=== PATIENT | female | born 1980 | race Two or more races ===

== ENCOUNTER 2017-05-15 19:43 | Emergency (ER) | payer OTHER ==
[~2017-05-15] VITALS: Ht 149.9 cm; Wt 79.2 kg
[2017-05-15 19:49] VITALS: Ht 149.9 cm; Wt 79.2 kg
--- NOTE | 2017-05-15 20:32 | ERD ---
ER Documentation Chief Complaint Chief Complaint 15 weeks , pelvic/belly pains now, hx fibroids HPI 15 wk female with a large fibroid . pt reports that she is having pain and difficulty walking . pt denies vaginal bleeding .pt reports that she was not having pain and now she is having pain and feet swelling , Next [facility] appointment 05/24/17 ROS All systems reviewed and are negative except as per history of present illness. Allergies Allergies: Coded Allergies: No Known Allergy (Unverified , 05/15/17) PMhx/Soc History of Surgery: No Anesthesia Reaction: No Hx Neurological Disorder: No Hx Respiratory Disorders: No Hx Cardiac Disorders: No Hx Psychiatric Problems: No Hx Miscellaneous Medical Probl: Yes (Fibroids) Hx Alcohol Use: No Hx Substance Use: No Hx Tobacco Use: No Smoking Status: Never smoker Physical Exam Vitals Vital Signs Date Time Temp Pulse Resp B/P Pulse Ox O2 Delivery O2 Flow Rate FiO2 05/15/17 19:49 97.1 94 18 103/66 98 Physical Exam Const: Nourished well-appearing well-hydrated 37-year-old female in no acute distress Head: Eyes: ENT: NormaLl External Ears, Nose and Mouth. Neck: Resp: Cardio: Abd: 's abdomen tenderness Skin: Back: flank tenderness Ext: No cyanosis, trace nonpitting edema bilateral ankles Neur: Awake and alert Psych: Normal Mood and Affect Result Diagram: 05/15/172042 Results 24 hrs Laboratory Tests Test 05/15/17 20:43 05/15/17 20:50 White Blood Count 12.710^3/ul Red Blood Count 3.7010^6/ul Hemoglobin 11.0g/dl Hematocrit 32.3% Mean Corpuscular Volume 87.3fl Mean Corpuscular Hemoglobin 29.7pg Mean Corpuscular Hemoglobin Concent 34.1g/dl Red Cell Distribution Width 12.2% Platelet Count 48385^3/UL Mean Platelet Volume 10.1fl Neutrophils % 68.9% Lymphocytes % 18.9% Monocytes % 10.8% Eosinophils % 0.7% Basophils % 0.3% Nucleated Red Blood Cells % 0.0/100WBC Neutrophils # 8.810^3/ul Lymphocytes # 2.410^3/ul Monocytes # 1.410^3/ul Eosinophils # 0.110^3/ul Basophils # 0.010^3/ul Nucleated Red Blood Cells # 0.010^3/ul Beta HCG, Quantitative 61653.0mIU/ml Urine Color YELLOW Urine Clarity SLIGHTLY CLOUDY Urine pH 6.0 Urine Specific [place] 1.018 Urine Ketones NEGATIVEmg/dL Urine Nitrite NEGATIVEmg/dL Urine Bilirubin NEGATIVEmg/dL Urine Urobilinogen NEGATIVEmg/dL Urine Leukocyte Esterase NEGATIVELeu/ul Urine Microscopic RBC 1/HPF Urine Microscopic WBC 2/HPF Urine Squamous Epithelial Cells FEW/HPF Urine Bacteria FEW/HPF Urine Mucus FEW/HPF Urine Hemoglobin NEGATIVEmg/dL Urine Glucose NEGATIVEmg/dL Urine Total Protein NEGATIVEmg/dl Current Medications Medications (Trade) Dose Ordered Sig/Enmanuel Route PRN Reason Start Time Stop Time Status Last Admin Dose Admin Acetaminophen (Tylenol Tab) 650 mg ONCE ONCE PO 05/15/17 21:00 05/15/17 21:01 DC 05/15/17 20:52 Interpretation text CBC shows evidence of infection or hemorrhage, WBCs elevated this is not abnormal during , Serum beta quant 09609.0mIU/ml normal for 16 weeks of . Urinalysis negative for evidence of leukocytosis or nitrates, no evidence of infection. Procedures/MDM PROCEDURE: Obstetrical ultrasound greater than 14 weeks CLINICAL INDICATION: Pelvic pain. Fibroid TECHNIQUE: Real time sonographic imaging of the gravid uterus is performed transabdominally and multiple static black scale and Doppler images are submitted for review as are measurements. The images are reviewed on the PACS. COMPARISON: No relevant exams are available FINDINGS: An ovoid hypoechoic subserosal fundal leiomyoma is suspected estimated at 9.3 x 7.8 x 6.1 cm. There is a single living intrauterine gestation in breech to variable presentation. The heart beat is estimated at 129 bpm. The measurements are as follows: BPD: 3.25 cm HC: 11.17 cm AC: 10.02 cm FL: 2.04 cm Estimated gestational age is 16 weeks. The estimated date of delivery is 2017. The estimated weight is 142 grams. Placenta is posterior and grade 0. There is no evidence of placenta previa or abruption. The amniotic fluid is qualitatively normal RPTAT:VLADIMIR IMPRESSION: 1. Single viable intrauterine gestation estimated at 16 weeks with the estimated date of delivery 10/30/2017. 2. Large subserosal leiomyoma estimated at 9.3 cm she leiomyoma estimated at 9.3 cm. 3. Posterior grade 0 placenta without evidence of abruption. Physician Howard Date Time Electronically viewed and signed by Physician Howard on 05/15/2017 21:24 This , 37-year-old female presents to emergency department with pelvic pain worsening over the last 2 days. Patient reports that she is 15 weeks has a large uterine fibroid being followed by care companion, patient is seen monthly next visit in May. Patient reports pain has increased over the last 2 days patient is concerned that something is wrong with the . She denies any vaginal bleeding, or discharge, she denies dysuria, or hematuria. Emergency room course includes single viable intrauterine gestation as estimated at 16 weeks with estimated date of delivery October 30, 2017. Large subserosal fundal leiomyoma estimated at 9.3 cm. Posterior grade 0 placenta without evidence of abruption plan to discharge patient home with copy of ultrasound report instructed to follow-up with primary care physician, return to emergency department for any vaginal bleeding, pelvic pain. Patient is stable with no new complaints during ER course, clinically there is no current evidence to suggest meningitis, sepsis, acute abdomen, acute coronary syndromes , pulmonary embolism or any other emergent condition appearing to require further evaluation or hospitalization. I feel the patient is stable for discharge at this time. I have discussed results, examination findings, the treatment plan with the patient and family present prior to discharge. Indications for emergent reevaluation, side effects of medication were also discussed. All questions were answered. Patient verbalizes understanding and agrees with plan of care. Departure Diagnosis: Primary Impression: Pelvic pain complicating Trimester: first trimester Qualified Code: O26.891 - Pelvic pain affecting in first trimester, antepartum Additional Impression: Leiomyoma Condition: Good Patient Instructions: Uterine Fibroids, What Are Fibroids? Additional Instructions: Thank you for for coming to [facility] for your care today. Please ask your nurse or provider if you have questions about your care today and do not leave until all your questions have been answered. Please use any medications given as directed and follow-up with your doctor (or the doctor you were referred to) in the next 2-3 days. If you do not have a primary care doctor you may follow up at the [facility] (listed below). You may also use motrin and tylenol as needed for fever and/or pain unless instructed otherwise by your provider or nurse. Indications for more urgent follow-up have been discussed, but you may return to the Emergency Department at ANY time for any worrisome or worsening symptoms. If you have abdominal pain, please know that no test or exam you received is perfect and you should follow up within 8 hours for continued pain. If you had any imaging studies today, such as an X-Ray or CT Scan, these studies will be reviewed later by a radiologist. You will be called if there are important findings that were not identified today, so make sure the contact information you provided at registration is correct. If you received any narcotic pain control medicine today, such as Vicodin, Morphine or Dilaudid, your coordination and judgment may be affected for a number of hours. Please do not drive or operate heavy machinery, and you may want someone to assist you at home. If you were given a prescription for narcotic medication, be aware that it is very addictive- use sparingly and only if necessary. TESS GUERRERO May 15, 2017 20:32
[2017-05-15] MEDS ORDERED: ACETAMINOPHEN 325 MG TAB PO ONE (21:00)
[2017-05-15 21:21] LABS: BASOPHILS % 0.3 % (0.0-2.0); EOSINOPHILS # 0.1 10^3/ul (0.0-0.5); EOSINOPHILS % 0.7 % (0.0-7.0); HEMATOCRIT 32.3 % (37.0-47.0); LYMPHOCYTES # 2.4 10^3/ul (0.8-2.9); LYMPHOCYTES % 18.9 % (15.0-51.0); MEAN CORPUSCULAR HEMOGLOBIN 29.7 pg (29.0-33.0); MEAN CORPUSCULAR HGB CONC 34.1 g/dl (32.0-37.0); MEAN CORPUSCULAR VOLUME 87.3 fl (82.0-101.0); MEAN PLATELET VOLUME 10.1 fl (7.4-10.4); MONOCYTE # 1.4 10^3/ul (0.3-0.9); MONOCYTES % 10.8 % (0.0-11.0); NEUTROPHIL # 8.8 10^3/ul (1.6-7.5); NEUTROPHILS % 68.9 % (39.0-77.0); PLATELET COUNT 260 10^3/UL (140-415); RED CELL DISTRIBUTION WIDTH 12.2 % (11.5-14.5); WHITE BLOOD COUNT 12.7 10^3/ul (4.8-10.8)
--- NOTE | 2017-05-15 21:24 | RADRPT ---
PROCEDURE: Obstetrical ultrasound greater than 14 weeks CLINICAL INDICATION: Pelvic pain. Fibroid TECHNIQUE: Real time sonographic imaging of the gravid uterus is performed transabdominally and mu ltiple static black scale and Doppler images are submitted for review as are measurements. The image s are reviewed on the PACS. COMPARISON: No relevant exams are available FINDINGS: An ovoid hypoechoic subserosal fundal leiomyoma is suspected estimated at 9.3 x 7.8 x 6.1 cm. There is a single living intrauterine gestation in breech to variable presentation. The heart beat is estimated at 129 bpm. The measurements are as follows: BPD:3.25 cm HC:11.17 cm AC:10.02 cm FL:2.04 cm Estimated gestational age is 16 weeks. The estimated date of delivery is 10/30/2017. The estimated weight is 142 grams. Placenta is posterior and grade 0. There is no evidence of placenta previa or abruption. The amniotic fluid is qualitatively normal RPTAT:HJJR IMPRESSION: 1. Single viable intrauterine gestation estimated at 16 weeks with the estimated date of delivery . 2. Large subserosal fundal leiomyoma estimated at 9.3 cm. 3. Posterior grade 0 placenta without evidence of abruption. Physician Howard Date Time Electronically viewed and signed by Physician Howard on 05/15/2017 21:24 /
[2017-05-15 21:29] LABS: ADD UMIC NO; UR ASCORBIC ACID 40 mg/dL (NEGATIVE); UR BACTERIA FEW /HPF (NONE SEEN); UR BILIRUBIN (Dip) NEGATIVE (NEGATIVE); UR BLOOD (Dip) NEGATIVE (NEGATIVE); UR CLARITY SLIGHTLY CLOUDY (CLEAR); UR COLOR YELLOW (YELLOW); UR GLUCOSE (Dip) NEGATIVE (NEGATIVE); UR KETONES (Dip) NEGATIVE (NEGATIVE); UR LEUKOCYTE ESTERASE (Dip) NEGATIVE Leu/ul (NEGATIVE); UR MUCUS FEW /HPF (NONE SEEN); UR NITRITE (Dip) NEGATIVE (NEGATIVE); UR RBC 1 /HPF (0-5); UR SPECIFIC GRAVITY (Dip) 1.018 (1.003-1.030); UR SQUAMOUS EPITHELIAL CELL FEW /HPF (FEW); UR TOTAL PROTEIN (Dip) NEGATIVE (NEGATIVE); UR UROBILINOGEN (Dip) NEGATIVE (NEGATIVE)
[2017-05-15 22:57] VITALS: BP 101/66; PULSE 87; RESP 16
== END 2017-05-15 22:58 | disposition home or self-care (01) ==
LOC: FTE 19:43
DX: O26.892 Other specified pregnancy related conditions, second trimester (principal); O34.12 Maternal care for benign tumor of corpus uteri, second trimester; R10.2 Pelvic and perineal pain; Z3A.16 16 weeks gestation of pregnancy
CPT/HCPCS: 36415; 76805; 81001; 84702; 85025; 86900; 86901; Z7502; Z7610; 81003